=== PATIENT | female | born 1985 | race African-American/Black ===

== ENCOUNTER 2019-06-01 04:58 | Inpatient (IN) ==
[2019-06-01] MEDS ORDERED: KEFZOL 1 GM/D5W 1 GM/50 ML IVPB IV PRN (05:07)
[2019-06-01] MEDS ORDERED: REGLAN PO ONE (05:07)
[2019-06-01] MEDS ORDERED: PEPCID PO ONE (05:07)
[2019-06-01] MEDS ORDERED: BICITRA PO ONE (05:10)
[2019-06-01] MEDS ORDERED: LR 1,000 ML IV SCH (05:15)
[2019-06-01 05:53] LABS: URINE SOURCE VOIDED
--- NOTE | 2019-06-01 05:59 | HISTORY AND PHYSICAL ---
HISTORY OF PRESENT ILLNESS: The patient is a 33-year-old black female (G5, P3, A1) with a history of section x 3 for elective repeat section. The patient also expressed desire for permanent sterilization. The patient is also being treated for anemia during this , and her Group B Strep culture was negative, otherwise unremarkable care although it was started late second trimester care. PAST MEDICAL HISTORY: Unremarkable. PAST SURGICAL HISTORY: section x 3. PAST OB HISTORY: G5, P3, Al. section x 3. AB x 1. 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 REVIEW OF SYSTEMS: All systems reviewed and noncontributory. FAMILY HISTORY: Significant for diabetes mellitus. SOCIAL HISTORY: Tobacco use none. Alcohol use none. MEDICATIONS: Iron and vitamins. ALLERGIES: No known drug allergies. PHYSICAL EXAMINATION: VITAL SIGNS: Height 5 feet 0; weight 186 pounds; temperature 98.1; blood pressure 108/65; pulse 80; respirations 18; heart rate 141. HEENT: Pupils equal, round, and reactive to light and accommodation. Extraocular movements intact. Oropharynx clear. NECK: Supple. No thyromegaly. LUNGS: Clear to auscultation. HEART: Regular rate and rhythm. ABDOMEN: Gravid, nontender. EXTREMITIES: No clubbing, cyanosis or edema noted. NEUROLOGICAL: Cranial nerves II through XII grossly intact. Motor 5 out of 5. DTRs 2+ bilaterally.. ASSESSMENT AND PLAN: A 33-year-old black female G5, P3, A1 at 39 weeks gestation for elective repeat section and tubal ligation. The patient was counseled about the risks of surgery, including bleeding, infection, bowel or bladder injury. The patient was also counseled about the permanency of tubal ligation, failure rate of 2-4 per 1000, as well as the availability of reversible alternatives such as IUD, control pills, patches, injections, etc. cc: Harlan Conde III, MD
[2019-06-01 06:01] LABS: BASO# 0.02 X1000 (0.0-0.2); BASO% 0.3 % (0.0-0.8); EOS# 0.86 X1000 (0.0-0.7); EOS% 10.9 % (0.0-10.0); HEMATOCRIT 33.4 % (37.0-47.0); HEMOGLOBIN 10.5 g/dL (12.0-16.0); IMM GRAN# 0.02 X1000 (0.0-0.04); IMM GRAN% 0.3 % (0.0-0.5); LYMPH# 1.77 X1000 (1.2-3.4); LYMPH% 22.4 % (20.5-51.1); MCH 23.2 PG (27-31); MCHC 31.4 g/dL (33-37); MCV 73.7 FL (81-99); MONO# 0.74 X1000 (0.11-0.59); MONO% 9.4 % (1.7-9.3); MPV 13.2 FL (7.4-10.4); NEUT# 4.49 X1000 (1.4-6.5); NEUT% 56.7 % (42.2-75.2); PLT 229 X1000 (130-400); RBC 4.53 XMIL (4.2-5.4); RDW 15.7 % (11.5-14.5)
[2019-06-01 06:27] LABS: BILIRUBIN URINE NEGATIVE (NEGATIVE); BLOOD URINE NEGATIVE (NEGATIVE); CLARITY SL. CLOUDY (CLEAR); COLOR YELLOW; GLUCOSE URINE NEGATIVE (NEGATIVE); KETONE URINE 2+(Moderate) mg/dL (NEGATIVE); LEUKOCYTES URINE TRACE (NEGATIVE); NITRITE URINE NEGATIVE (NEGATIVE); PH URINE 6.5; PROTEIN URINE TRACE mg/dL (NEGATIVE); SP GRAVITY URINE 1.015; UROBILINOGEN URINE NORMAL
[2019-06-01 06:29] LABS: UR AMPHETAMINES QUAL NONE DETECTED (NONE DETECT); UR BARBITUATES QUAL NONE DETECTED (NONE DETECT); UR BENZODIAZEPIN QUAL NONE DETECTED (NONE DETECT); UR CANNABINOIDS QUAL NONE DETECTED (NONE DETECT); UR COCAINE QUAL NONE DETECTED (NONE DETECT); UR METHADONE QUAL NONE DETECTED (NONE DETECT); UR METHAMPHETAMINE QUAL NONE DETECTED (NONE DETECT); UR OPIATES QUAL NONE DETECTED (NONE DETECT); UR OXYCODONE QUAL NONE DETECTED (NONE DETECT); UR PCP QUAL NONE DETECTED (NONE DETECT); UR PROPOXYPHENE QUAL NONE DETECTED (NONE DETECT); UR TCA QUAL NONE DETECTED (NONE DETECT)
[2019-06-01] MEDS ORDERED: EPHEDRINE ONE (06:50)
[2019-06-01] MEDS ORDERED: DURAMORPH ONE (06:50)
[2019-06-01] MEDS ORDERED: PITOCIN ONE ×2 (06:50→08:00)
[2019-06-01 06:51] LABS: EOS 6 % (1-10); HYPOCHROM 1+; LYMPHS 29 % (21-51); MICROCYTOSIS 2+; MONO 5 % (1-9); POIKILOCYTOSIS 1+; SEGS 60 % (42-75)
[2019-06-01 06:52] LABS: LARGE PLATELETS OCCASIONAL
[2019-06-01] MEDS ORDERED: M-M-R II VACCINE SUBQ ONE (08:05)
[2019-06-01] MEDS ORDERED: AMBIEN PO PRN (08:05)
[2019-06-01] MEDS ORDERED: DEMEROL IM PRN (08:05)
[2019-06-01] MEDS ORDERED: DULCOLAX PR PRN (08:05)
[2019-06-01] MEDS ORDERED: ATARAX PO PRN (08:05)
[2019-06-01] MEDS ORDERED: NORCO-5 PO PRN (08:05)
[2019-06-01] MEDS ORDERED: DEMEROL PO PRN ×2 (08:05)
[2019-06-01] MEDS ORDERED: BOOSTRIX VACCINE IM ONE (08:05)
[2019-06-01] MEDS ORDERED: MYLICON PO PRN (08:05)
[2019-06-01] MEDS ORDERED: PITOCIN IM PRN (08:05)
[2019-06-01] MEDS ORDERED: HYDROXYZINE IM PRN (08:05)
[2019-06-01] MEDS ORDERED: PITOCIN 20 UNITS/NS 20 UNITS/1,000 ML IV.SOLN IV ONE (08:05)
--- NOTE | 2019-06-01 08:52 | OPERATIVE NOTE ---
PROCEDURE DATE: 06/01/2019 PREOPERATIVE DIAGNOSIS: Intrauterine 39 weeks gestation with history of previous C- section x3, for elective repeat . The patient also desires permanent sterilization. POSTOPERATIVE DIAGNOSIS: Intrauterine 39 weeks gestation with history of previous C- section x3, for elective repeat . The patient also desires permanent sterilization, with operative delivery of a female infant, 7 pounds 14 ounces with Apgars of 8 and 9 at 7:23 on 06/01/2019. PROCEDURE PERFORMED: Repeat low-transverse section and bilateral tubal ligation. SURGEON: Harlan Conde III, MD FORMWORK CARPENTER: Leonardo Auguste DO ANESTHESIA: Spinal, Dr. Erwin. FINDINGS: Normal-appearing uterus, tubes, and ovaries with scar tissue noted from previous C- sections. Also there was a loose nuchal cord x1 that was reduced easily at the time of delivery. COMPLICATIONS: None. ESTIMATED BLOOD LOSS: 600 mL. SPECIMENS REMOVED: Right and left fallopian tube segments. DRAINS: Thomas to straight drain. COUNTS: All counts were correct x3. INDICATIONS: Patient is a 33-year-old black female, G5, P3, A1, at 39 weeks gestation with history of prior x3 for elective repeat . Patient also desires permanent sterilization. The patient counseled about the risks of surgery including bleeding, infection, bowel or bladder injury. The patient also counseled about the permanency of the procedure, failure rate of 2 to 12/999, as well as the availability of reversible alternatives such as IUD, control pills, patches, etc. DESCRIPTION OF PROCEDURE: Patient was taken to labor and delivery OR. Spinal anesthesia was employed. Then the patient was placed in dorsal lithotomy position with a roll under right hip. She was then prepped and draped in a sterile fashion with placement of Thomas catheter and she was prepped and draped in a sterile fashion. Adequate anesthesia was noted by using Allis clamps on skin. Then a Pfannenstiel skin incision was made on abdomen using scalpel. This was then taken down choose sharply to the fascia layer. A small olga was made in the rectus fascia. Fascial incision was then extended by curved Randolph scissors bilaterally and then blunt and sharp dissection of the superior and inferior aspects of the rectus fascia was performed noting extensive adhesions along the way. The peritoneal layer was entered bluntly and then dissected the peritoneal incision superiorly and inferiorly with care taken to avoid the bladder. Bladder blade was placed into the abdominal cavity. A bladder reflection was created using Metzenbaum scissors and then bladder blade was replaced back into the abdominal cavity. A transverse incision was made on lower uterine segment using scalpel. This was extended bilaterally using surgeon's fingers. Clear fluid was noted upon entry into the amniotic cavity. head was then elevated toward the hysterotomy site and with gentle fundal pressure, the head was delivered atraumatically. Bulb suction of nose and mouth at this point in time, and also noted a loose nuchal cord which was reduced easily. Then the rest of the body was delivered atraumatically with gentle fundal pressure. Umbilical cord was clamped twice and cut and infant handed to nursery nurse in attendance for delivery. Cord blood sample was obtained at this time. The placenta was then manually extracted. The uterus was then exteriorized. Wet lap was placed around the uterus. Dry lap was then used to curette the uterine cavity of clots and debris x2. Uterine incision was then closed using 0 chromic in a running locking fashion x1 and then a small area of oozing was noted on the left side, made hemostatic with a [id number] stitch of 0 chromic. At this point in time, inspection showed good hemostasis along the bladder reflection and on the incision, uterine incision. Then the attention was then turned to the fallopian tubes. Right fallopian tube was grasped near the isthmus using a Harika clamp and then a hole was made in the mesosalpinx using electrocautery and 0 plain suture was then used to ligate a portion of the fallopian tube which was then excised using Metzenbaum scissors and handed off to be placed in a specimen container. The open ends of the fallopian tube were then touched with electrocautery and good hemostasis was noted. Attention was then turned to the left fallopian tube which was grasped near the isthmus with a [place] clamp. A hole was made in the mesosalpinx using electrocautery. This portion of the fallopian tube was then ligated using 0 plain suture x2. Metzenbaum scissors then removed this segment of fallopian tube. Electrocautery was then used on the open ends of the fallopian tube and good hemostasis was noted. This also was handed off to be placed in a specimen container. At this point in time, the posterior cul-de-sac was then irrigated copiously and then the uterus was replaced back into the abdominal cavity. Pericolic gutters were cleansed using moist lap sponges. Uterine incision and bladder reflection were inspected. Good hemostasis was noted. The peritoneal layer was then closed using 2-0 chromic in a running fashion x1. The fascia layer was then closed using 0 PDS in a running fashion x1. Subcutaneous layer was then irrigated with normal saline and electrocautery was used to obtain hemostasis. The skin was then reapproximated using brenda. Patient tolerated the procedure well, was taken to recovery room in stable condition. All counts were correct x3. cc: Harlan Conde III, MD
[2019-06-01] MEDS ORDERED: ZOFRAN IV ONE (11:30)
[2019-06-01] MEDS ORDERED: MORPHINE IV PRN (11:51)
[2019-06-01] MEDS ORDERED: ZOFRAN IV PRN ×2 (12:00)
[2019-06-01] MEDS ORDERED: ZOFRAN ODT PO PRN (12:00)
[2019-06-01] MEDS ORDERED: BENADRYL IV PRN (12:00)
[2019-06-01] MEDS ORDERED: NARCAN INJ PRN (12:00)
[2019-06-01] MEDS: PHENERGAN IM PRN (14:06)
[2019-06-01] MEDS: TORADOL IV SCH ×2 (15:15→20:14)
[2019-06-01] MEDS: PITOCIN 10 UNITS/NS 1,000 ML IV SCH ×2 (15:33→23:53)
[2019-06-01] MEDS: MYLICON PO SCH ×3 (15:33→20:16)
[2019-06-01] MEDS: PERICOLACE PO SCH (20:17)
[2019-06-02] MEDS: TORADOL IV SCH (02:16)
[2019-06-02 05:42] LABS: BASO# 0.01 X1000 (0.0-0.2); BASO% 0.1 % (0.0-0.8); EOS% 5.3 % (0.0-10.0); HEMATOCRIT 31.4 % (37.0-47.0); HEMOGLOBIN 9.7 g/dL (12.0-16.0); IMM GRAN# 0.01 X1000 (0.0-0.04); IMM GRAN% 0.1 % (0.0-0.5); LYMPH# 1.11 X1000 (1.2-3.4); LYMPH% 11.8 % (20.5-51.1); MCH 23.2 PG (27-31); MCHC 30.9 g/dL (33-37); MCV 74.9 FL (81-99); MONO# 0.61 X1000 (0.11-0.59); MONO% 6.5 % (1.7-9.3); NEUT# 7.14 X1000 (1.4-6.5); NEUT% 76.2 % (42.2-75.2); RBC 4.19 XMIL (4.2-5.4); RDW 15.6 % (11.5-14.5); WBC 9.38 X1000 (4.8-10.8)
[2019-06-02 06:22] LABS: BANDS 1 % (0-1); EOS 5 % (1-10); LYMPHS 11 % (21-51); MONO 7 % (1-9); SEGS 76 % (42-75)
[2019-06-02 06:23] LABS: ANISOCYTOSIS OCCASIONAL; POLYCHROM OCCASIONAL
[2019-06-02 06:24] LABS: LARGE PLATELETS OCCASIONAL; OVALOCYTES 1+; POIKILOCYTOSIS 1+
[2019-06-02 06:25] LABS: PLT 190 X1000 (130-400)
--- NOTE | 2019-06-02 07:50 | OB/GYN PROGRESS NOTE ---
Progress Note OB - . OB Progress Note: Vital Signs - 24 hr 06/01/19 08:05 06/01/19 08:15 06/01/19 08:25 Temperature Pulse Rate 64 52 L 50 L Respiratory Rate 16 16 16 Blood Pressure Blood Pressure [Right Arm] 112/55 115/58 104/59 O2 Sat by Pulse Oximetry 97 98 98 06/01/19 08:35 06/01/19 08:45 06/01/19 08:55 Temperature Pulse Rate 53 L 49 L 52 L Respiratory Rate 18 18 20 Blood Pressure Blood Pressure [Right Arm] 106/63 103/60 105/62 O2 Sat by Pulse Oximetry 97 97 98 06/01/19 09:05 06/01/19 09:15 06/01/19 09:25 Temperature Pulse Rate 57 L 54 L 53 L Respiratory Rate 18 18 16 Blood Pressure Blood Pressure [Right Arm] 108/63 103/60 115/63 O2 Sat by Pulse Oximetry 98 94 L 98 06/01/19 09:35 06/01/19 09:45 06/01/19 09:55 Temperature Pulse Rate 63 59 L 63 Respiratory Rate 20 18 16 Blood Pressure Blood Pressure [Right Arm] 111/65 116/65 121/70 O2 Sat by Pulse Oximetry 98 97 96 06/01/19 10:05 06/01/19 12:30 06/01/19 13:30 Temperature 97.0 F L Pulse Rate 65 65 63 Respiratory Rate 16 18 16 Blood Pressure 121/70 126/61 Blood Pressure [Right Arm] 115/65 O2 Sat by Pulse Oximetry 96 96 97 06/01/19 14:30 06/01/19 15:30 06/01/19 16:30 Temperature 97.2 F L Pulse Rate 60 63 62 Respiratory Rate 18 18 16 Blood Pressure 116/58 110/63 102/53 Blood Pressure [Right Arm] O2 Sat by Pulse Oximetry 95 95 97 06/01/19 19:55 06/01/19 23:55 06/02/19 04:02 Temperature 98.2 F 97.2 F L 97.2 F L Pulse Rate 64 76 74 Respiratory Rate 18 18 18 Blood Pressure 108/57 107/60 113/67 Blood Pressure [Right Arm] O2 Sat by Pulse Oximetry 97 96 98 Laboratory Results - last 24 hr 06/02/19 04:59 WBC 9.38 RBC 4.19 L Hgb 9.7 L Hct 31.4 L MCV 74.9 L MCH 23.2 L MCHC 30.9 L RDW Std Deviation 15.6 H Plt Count 190 MPV Not Reportable Immature Gran % (Auto) 0.1 Neut % (Auto) 76.2 H Lymph % (Auto) 11.8 L [place] % (Auto) 6.5 Eos % (Auto) 5.3 Baso % (Auto) 0.1 Immature Gran # (Auto) 0.01 Neut # (Auto) 7.14 H Lymph # (Auto) 1.11 L [place] # (Auto) 0.61 H Eos # (Auto) 0.50 Baso # (Auto) 0.01 Segmented Neutrophils 76 H Band Neutrophils 1 Lymphocytes 11 L Monocytes 7 Eosinophils 5 Large Platelets OCCASIONAL Polychromasia OCCASIONAL Poikilocytosis 1+ Anisocytosis OCCASIONAL Macrocytosis OCCASIONAL Ovalocytes 1+ POD#1 s/p LTCD/BTL [place] reg diet, No ambulating, good pain control. Decreased lochia. No chest pain, SOB or leg pain. Voiding without diff VSS AF Gen - Pt in no apparent distress, A&O x 3 ABD - soft, NT, ND, FF - bandage clean Extreme - no CCE A/p POD#1 - LTCS/BTL Cont PP care Anemia - no symptoms - iron started
[2019-06-02] MEDS ORDERED: LR 1,000 ML IV SCH (08:05)
[2019-06-02] MEDS: FERROUS SULFATE PO SCH (09:23)
[2019-06-02] MEDS: NORCO-10 PO PRN ×2 (09:24→16:51)
[2019-06-02] MEDS: MOTRIN PO PRN ×2 (09:24→16:51)
[2019-06-02] MEDS: MYLICON PO SCH ×5 (09:25→21:15)
[2019-06-02] MEDS: PERICOLACE PO SCH (21:15)
[2019-06-03] MEDS: NORCO-10 PO PRN ×4 (03:12→21:04)
[2019-06-03] MEDS: MOTRIN PO PRN ×3 (03:12→20:48)
[2019-06-03] MEDS: MYLICON PO SCH ×5 (08:03→20:48)
[2019-06-03] MEDS: FERROUS SULFATE PO SCH (09:03)
[2019-06-03] MEDS: PHENERGAN IM PRN (09:16)
[2019-06-03] MEDS: PERICOLACE PO SCH (20:47)
[2019-06-04] MEDS: NORCO-10 PO PRN ×2 (03:47→10:27)
[2019-06-04] MEDS: MOTRIN PO PRN (07:04)
[2019-06-04 07:10] VITALS: BP 124/73
--- NOTE | 2019-06-04 08:00 | OB/GYN PROGRESS NOTE ---
Progress Note OB - . OB Progress Note: Vital Signs - 24 hr 06/03/19 09:00 06/03/19 20:55 06/04/19 03:50 Temperature 98.0 F 97.9 F Pulse Rate 68 82 71 Respiratory Rate 16 18 18 Blood Pressure 107/62 131/73 117/60 O2 Sat by Pulse Oximetry 99 100 98 06/04/19 07:09 Temperature 97.8 F Pulse Rate 76 Respiratory Rate 18 Blood Pressure 124/73 O2 Sat by Pulse Oximetry 97 33yo POD#3 s/p Rpt C/S with BTL Patient seen and examined, no complaints. She is up in chair this AM. Pain is controlled. She notes minimal lochia. She is ambulating and voiding without difficulty. She is tolerating a regular diet. She denies nausea/vomiting, fever, chills. She is passing flatus. She had a BTL for pp contraception. She is . Physical Exam-General - PHYSICAL EXAM-ADULT Initial Vital Signs Reviewed: Yes - CONSTITUTIONAL General Appearance: appears well, alert, no apparent distress - EYES Eyes: PERRL/EOMI - HEAD, EARS, NOSE, MOUTH & THROAT HENMT: normocephalic/atraumatic - RESPIRATORY Respiratory: lungs clear, normal breath sounds - CARDIOVASCULAR Cardiovascular: regular rate, rhythm - GASTROINTESTINAL (ABDOMEN) Abdominal Exam: normal bowel sounds, non tender, soft, other (Pfannensteil incision C/D/I, closed with brenda Fundus firm, below umbilicus, ATTP) - MUSCULOSKELETAL Extremity: normal range of motion, non-tender - PSYCHIATRIC Psych/Mental Status: normal mood/affect Assessment/Plan - Assessment/Plan Assessment: 33 yo POD#3 s/p Rpt C/S with BTL, anemia 1. HD stable, Hgb 9.7 2. Continue Iron for anemia 3. Routine PP care 4. Encourage ambulation, 5. D/C home today, follow-up in 1 week for staple removal
[2019-06-04] MEDS: FERROUS SULFATE PO SCH (08:33)
[2019-06-04] MEDS: MYLICON PO SCH (08:34)
--- NOTE | 2019-06-05 14:49 | DISCHARGE SUMMARY ---
ADMISSION DATE: 06/01/2019 DISCHARGE DATE: 06/04/2019 ADMITTING PHYSICIAN: Dr. Malcolm Conde. CONDITION ON DISCHARGE: Stable. FINAL DIAGNOSES: 1. A 33-year-old, G5, P4-0-1-4, postoperative day #3 status post repeat section with bilateral tubal ligation. 2. Desires permanent sterilization. 3. Anemia. HISTORY OF PRESENT ILLNESS: The patient is a 33-year-old, G5, P3-0-1-3, at 39 weeks, who presented for an elective repeat section and bilateral tubal ligation. Her has been complicated by anemia. She underwent a routine repeat low-transverse section with bilateral tubal ligation on 06/01/2019. She had a routine course. On postop day #3, she was ambulating and voiding without difficulty. Her pain was controlled. She had minimal lochia. She was passing flatus. She was deemed stable for discharge. DISCHARGE MEDICATIONS: 1. [place] 10 mg p.o. every 6 hours p.r.n. pain. 2. Motrin 800 mg p.o. every 8 hours p.r.n. pain. 3. Colace 100 mg p.o. b.i.d. p.r.n. constipation. 4. Ferrous sulfate 325 mg p.o. daily. DISCHARGE INSTRUCTIONS: The patient was instructed to notify doctor with heavy vaginal bleeding of greater than 1 pad an hour, temperature of greater than 100.4 degrees Fahrenheit, severe abdominal pain, or persistent nausea or vomiting. The patient was instructed not to place anything in her vagina for 6 weeks. No tampons/douching/sex. FOLLOWUP APPOINTMENT: The patient was instructed to follow up with Dr. Conde in 1 week for staple removal. cc: Harlan Conde III, MD
== END 2019-06-04 11:06 | disposition home or self-care (01) | DRG 785 ==
LOC: P.LD 04:58
PROVIDERS: ADMIT Obstetrics & Gynecology; ATTEND Obstetrics & Gynecology